=== PATIENT | female | born 1975 | race Two or more races ===

== ENCOUNTER → 2020-02-22 | Outpatient (CLI) | payer OTHER | END | disposition home or self-care (01) | LOC: OFIC 805 10:15 | PROVIDERS: ATTEND Otolaryngology Otology & Neurotology | DX: G47.39 Other sleep apnea (principal); R68.2 Dry mouth, unspecified; R06.83 Snoring; J34.89 Other specified disorders of nose and nasal sinuses ==

== ENCOUNTER 2024-02-27 09:09 | Outpatient (CLI) | payer OTHER ==
[2024-02-27 11:37] LABS: INR 1.01; PARTIAL THROMBOPLASTIN TIME 27.7 SECONDS (22.0-34.0)
[2024-02-27 11:50] LABS: ALBUMIN 3.9 gm/dL (3.4-5.0); BILIRUBIN TOTAL 0.54 mg/dL (0.3-1.2); CALCIUM 9.5 mg/dL (8.5-10.1); CREATININE SERUM 0.61 mg/dL (0.55-1.02); FERRITIN 8.7 NG/ML (8-252); GFR 105.13; GLOBULINA 3.7 G/DL (2.4-3.5); POTASSIUM 4.47 mEq/L (3.5-5.1); T4 FREE 0.91 NG/ML (0.76-1.46); TOTAL PROTEIN 7.6 gm/dL (6.4-8.2); TSH 0.569 uIU/mL (0.358-3.74)
[2024-02-27 11:53] LABS: HEMATOCRIT 37.1 % (36.0-45.00); HEMOGLOBIN 12.3 g/dL (12.0-15.00); MEAN CELL VOLUME 84.9 fL (80.00-100.00); MEAN CORPUSCULAR HEMOGLOBIN 28.2 pg (27.00-32.0); MEAN CORPUSCULAR HGB CONC 33.2 g/dl (32.0-36.0); PLATELET COUNT 469 K/uL (150-450); RED BLOOD COUNT 4.37 M/uL (4.00-6.00); RED CELL DISTRIBUTION WIDTH 14.6 % (11.5-14.5)
[2024-02-29 12:35] LABS: FOLIC ACID 10.12 ng/ml (4.78-20)
[2024-03-01 06:04] LABS: ALPHA FETO PROTEIN 3.2 ng/mL (0.0-6.4); ANTI THYROID PEROXIDASE 18 IU/mL (0-34)
[2024-03-01 10:05] LABS: ALPHA 1 ANTITRYPSIN 150 mg/dL (101-187); CERULOPLASMIN 22.4 mg/dL (19.0-39.0); IMMUNOGLOBULIN A 352 mg/dL (87-352); IMMUNOGLOBULIN G 1323 mg/dL (586-1602)
[2024-03-01 10:22] LABS: MANUAL PLATELET COUNT 958
[2024-03-01 10:24] LABS: PLATELET ESTIMATE INCREASED (NORMAL)
[2024-03-01 16:08] LABS: rnp 0.3 AI (0.0-0.9); smith ab < 0.2 AI (0.0-0.9)
[2024-03-02 14:04] LABS: ANTI MITOCHONDRIAL ANTIBODIES < 20.0 Units (0.0-20.0); PARIETAL CELL ANTIBODIES 2.2 Units (0.0-20.0)
== END 2024-02-27 09:34 | disposition home or self-care (01) ==
LOC: LAB 09:09
PROVIDERS: ATTEND Internal Medicine Hematology & Oncology
DX: D75.838 Other thrombocytosis (principal); F41.3 Other mixed anxiety disorders; F33.9 Major depressive disorder, recurrent, unspecified; K29.50 Unspecified chronic gastritis without bleeding; D50.9 Iron deficiency anemia, unspecified; I10 Essential (primary) hypertension; R79.9 Abnormal finding of blood chemistry, unspecified; R74.02 Elevation of levels of lactic acid dehydrogenase [LDH]; K76.89 Other specified diseases of liver; E03.8 Other specified hypothyroidism; E06.3 Autoimmune thyroiditis; K76.0 Fatty (change of) liver, not elsewhere classified; K75.9 Inflammatory liver disease, unspecified; M32.9 Systemic lupus erythematosus, unspecified; B20 Human immunodeficiency virus [HIV] disease; B65.9 Schistosomiasis, unspecified; D64.9 Anemia, unspecified